=== PATIENT | female | born 1990 | race Caucasian/White ===

== ENCOUNTER 2020-04-27 10:16 | Outpatient (CLI) | payer BC ==
--- NOTE | 2020-04-28 09:47 | Ultrasound Report ---
LIMITED ULTRASOUND OF RIGHT BREAST AND AXILLA: 04/27/2020 CLINICAL: Palpable right breast lump. No prior exams were available for comparison. Color flow and real-time ultrasound of the right breast 6 o'clock, and axilla regions were performed. Ruelas scale images of the real-time examination were reviewed. No significant abnormalities were seen sonographically in the right breast or the right axilla. IMPRESSION: NEGATIVE There is no sonographic evidence of malignancy in the region of the palpable abnormality. Exam findings were conveyed to the patient. Patient is advised to monitor for significant change. Cli nical follow-up as needed. Report of contralateral left breast fibroadenoma. This exam was interpreted at Station ID: [id number]. Electronically Signed By: Tony Lizama M.D. slc/:04/27/2020 12:54:48 Ultrasound BI-RADS: 1 Negative BI-RADS CATEGORY: (1) - 1 RECOMMENDATION: (ADDMAM) - Recommend additional mammographic views. recall n/a LATERALITY: (B)
== END 2020-04-27 10:17 | disposition home or self-care (01) ==
LOC: DI 10:16
PROVIDERS: ATTEND Nurse Practitioner Family
DX: D24.2 Benign neoplasm of left breast (principal)